=== PATIENT | female | born 2000 | race Hispanic/Latino ===

== ENCOUNTER 2023-05-01 07:37 | Emergency (ER) | payer OTHER, SELFPAY ==
--- OUTSIDE RECORDS SUMMARY | 2023-05-01 07:40 | XMS REPORT | Continuity of Care Document ---
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 Allergies, Adverse Reactions, Alerts Allergy Allergy Status Severity Reaction(s) Onset Inactive Treating Comm ents Source Name Type Date Date Clinician NO KNOWN Drug Active [facility] Social History Social Habit Start Date Stop Date Quantity Comments Source Sex Assigned At [facility] Alcohol intake 2018-06-25 2018[facility]06[facility]25 [facility] Smoking Status Start Date Stop Date Source Never smoker [facility] Medications Ordered Filled Start Stop Current Ordering Indication Dosage Frequency Signature Comments Components Source Medication Medication Date Date Medication? Clinician (SIG) Name Name No known No Univers medications [facility] Immunizations Ordered Immunization Filled Immunization Date Status Commen ts Source Name Name Meningococcal B, OMV 2018-06-25 Completed [facility] of 00:00:00 [facility] HPV9 2017-04-27 Completed University of 00:00:00 [facility] Meningococcal 2017-04-27 Completed [facility] 00:00:[address] [facility] jesse (groups A, C, Y and Branc h W-135) conjugate vaccine (MCV4P) Meningococcal B, OMV 2017-04-27 Completed Univ ersity of 00:00:00 [facility] HPV9 2015-09-22 Completed University of 00:00:00 [facility] Influenza Virus 2013-11-14 Completed Universit y of Vaccine 00:00:00 [facility] TDAP (ADACEL) VACCINE 2012-06-20 Completed Uni versity of 00:00:00 [facility] Varicella 2012-06-20 Completed University of (varivax)(chicken 00:00:00 [place] [facility] DTAP 2003-12-19 Completed University of 00:00:00 [facility] MMR 2003-12-19 Completed University of 00:00:00 [facility] Polio (IPV/OPV) 2003-12-19 Completed Universit y of 00:00:00 [facility] DTAP 2000-11-29 Completed University of 00:00:00 [facility] HIB 4 Dose Schedule 2000-11-29 Completed Unive rsity of 00:00:00 [facility] MMR 2000-11-29 Completed University of 00:00:00 [facility] Varicella 2000-11-29 Completed University of (varivax)(chicken 00:00:00 [place] [facility] DTAP 2000-05-25 Completed University of 00:00:00 [facility] Hep B, Adol or Pedi 2000-05-25 Completed Unive rsity of Dosage 00:00:00 [facility] HIB 4 Dose Schedule 2000-05-25 Completed Unive rsity of 00:00:00 [facility] Polio (IPV/OPV) 2000-05-25 Completed Universit y of 00:00:00 [facility] DTAP 2000-03-21 Completed University of 00:00:00 [facility] HIB 4 Dose Schedule 2000-03-21 Completed Unive rsity of 00:00:00 [facility] Polio (IPV/OPV) 2000-03-21 Completed Universit y of 00:00:00 [facility] DTAP 2000-01-20 Completed University of 00:00:00 [facility] Hep B, Adol or Pedi 2000-01-20 Completed Unive rsity of Dosage 00:00:00 [facility] HIB 4 Dose Schedule 2000-01-20 Completed [facility]ive rsity of 00:00:00 [facility] Polio (IPV/OPV) 2000-01-20 Completed Universit y of 00:00:00 [facility] Hep B, Adol or Pedi 1999 Completed Unive rsity of Dosage 00:00:00 [facility] Procedures Procedure Date / Time Performing Clinician Source Performed VACCINATIONS - 2020-02-27 05:01:00 Doctor Unassfroylan, No [facility] CONSENTS, ELIGIBILITY, Name [facility] HISTORY Encounters Start End Encounter Admission Attending Care Care Encounter Source Date/Time Date/Time Type Type Clinicians Facility Department ID 2022-01-06 2022-01-06 Outpatient R [facility] [id number] Univers 10:00:00 10:00:00 [id number] ity of [facility] 2022-01-06 2022-01-06 Outpatient R [facility] [id number] Univers 10:00:00 10:00:00 ity of [facility] 2020-02-27 2020-02-27 Orders Doctor PLASENCIA [id number] Univers 00:00:00 00:00:00 Only Unassigned, LANI [id number] ity of [place] [facility] [id number] [place] as [id number] [place] [id number] Branch 2018-06-25 2018-06-25 Outpatient R SHONDA [facility] [id number] Univers 14:50:00 16:08:58 CONY of [facility] Results This patient has no known results.
[2023-05-01] MEDS ORDERED: ONDANSETRON 4 MG/2 ML VIAL ONE (08:02)
[2023-05-01] MEDS ORDERED: DICYCLOMINE HCL 20 MG/2 ML AMP IM ONE (08:02)
[2023-05-01] MEDS ORDERED: NA CHLORIDE 0.9% 1,000 ML ONE (08:02)
[2023-05-01 08:17] LABS: Absolute Lymphocytes (CBC) 0.5 K/uL (0.7-4.9); Hematocrit 40.4 % (36.0-45.0); Lymphocytes % 4.5 % (15.3-44.8); MCV 77.2 fL (80-100); RBC Red Blood Cell Count 5.23 M/uL (3.86-4.86)
[2023-05-01] MEDS ORDERED: FAMOTIDINE 20 MG/2 ML VIAL IV ONE (08:29)
[2023-05-01 08:36] LABS: Albumin 4.1 g/dL (3.4-5.0); Bilirubin Total 0.4 mg/dL (0.2-1.0); Potassium 3.9 mEq/L (3.5-5.1); Protein, Total 8.5 g/dL (6.4-8.2)
--- NOTE | 2023-05-01 08:55 | RAD REPORT ---
EXAM DESCRIPTION: US - Abdomen Exam Limited - 05/01/2023 8:26 am CLINICAL HISTORY: RUQ tenderness COMPARISON: No comparisons TECHNIQUE: Sonographic grayscale and color flow images of the right upper abdominal quadrant were obtained. FINDINGS: The gallbladder demonstrates no echogenic shadowing gallstones. Lobulated sludge seen in t he fundus, although evaluation was technically difficult, and limited by prominent over shadowing bow el in the right upper quadrant. No pericholecystic fluid or gallbladder wall thickening. The common b ile duct is normal measuring 3 mm. The liver demonstrates no findings of intrahepatic biliary dilatation. IMPRESSION: Gallbladder sludge, allowing for limitations mentioned above. No sonographic evidence of cholelithiasis or acute cholecystitis.
[2023-05-01 09:01] LABS: Blood Morphology Comment NOT SEEN (NOT SEEN); Platelet Estimate ADEQ; White Blood Cell Scan NEUTROPHILIA (OK)
[2023-05-01 09:17] LABS: Specific Gravity 1.021 (1.005-1.030)
[2023-05-01 09:33] LABS: Specific Gravity 1.021 (1.005-1.030); Urine Bacteria <20 /HPF (<20); Urine Bilirubin NEGATIVE (Negative); Urine Blood 3+ (OVER) (Negative); Urine Clarity Turbid (Clear); Urine Color Light-Yellow (Yellow); Urine Glucose NEGATIVE (Negative); Urine Mucus Slight /HPF (None Seen); Urine Protein TRACE (Negative); Urine Urobilinogen Normal (Normal)
--- NOTE | 2023-05-01 09:50 | ER ---
Nurse's Notes [facility] Name: Jackie Pabon Age: 22 yrs Sex: Female : 2000 Arrival Date: 05/01/2023 Time: 07:37 Bed 5 Private MD: Diagnosis: Gastroenteritis Presentation: 05/01 07:45 Chief complaint: Patient states: N/V since midnight, diarrhea started at 0500, diffuse jl7 abdominal pain. Coronavirus screen: At this time, the client does not indicate any symptoms associated with coronavirus-19. Ebola Screen: No symptoms or risks identified at this time. Risk Assessment: Do you want to hurt yourself or someone else? Patient reports no desire to harm self or others. Onset of symptoms was May 01, 2023 at 00:00. Care prior to arrival: None. 07:45 Method Of Arrival: Ambulatory [facility] 07:45 Acuity: DARIUS 3 jl7 07:49 Initial Sepsis Screen: Does the patient meet any 2 criteria? No. Patient's initial jl7 sepsis screen is negative. Does the patient have a suspected source of infection? No. Patient's initial sepsis screen is negative. Triage Assessment: 07:46 General: Appears in no apparent distress. uncomfortable, Behavior is calm, cooperative, jl7 appropriate for age. Pain: Complains of pain in abdomen diffusely Pain currently is 5 out of 10 on a pain scale. GI: Reports diarrhea, nausea, vomiting. 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 - Social history:: Smoking status: Patient denies any tobacco usage or history of. - Family history:: not pertinent. Screenin:47 [facility] ED Fall Risk Assessment (Adult) History of falling in the last 3 months, jl7 including since admission No falls in past 3 months (0 pts) Confusion or Disorientation No (0 pts) Intoxicated or Sedated No (0 pts) Impaired Gait No (0 pts) Mobility Assist Device Used No (0 pt) Altered Elimination No (0 pt) Score/Fall Risk Level 0 - 2 = Low Risk Oriented to surroundings, Maintained a safe environment. Abuse screen: Denies threats or abuse. Denies injuries from another. Nutritional screening: No deficits noted. Tuberculosis screening: No symptoms or risk factors identified. Assessment: 08:09 General: Appears in no apparent distress. comfortable, Behavior is calm, cooperative, kc6 appropriate for age. Pain: Complains of pain in abdomen and abdomen diffusely Pain currently is 5 out of 10 on a pain scale. Neuro: Jacobson Agitation-Sedation Scale (RASS): 0 - Alert and Calm Level of Consciousness is awake, alert, obeys commands, Oriented to person, place, time, situation, Appropriate for age. Cardiovascular: Capillary refill < 3 seconds. Respiratory: Airway is patent Trachea midline Respiratory effort is even, unlabored, Respiratory pattern is regular, symmetrical. GI: Abdomen is flat, non-distended, Bowel sounds present X 4 quads. Abd is soft X 4 quads Abdomen is tender to palpation in right upper quadrant and left upper quadrant Reports diarrhea, nausea, vomiting. : No signs and/or symptoms were reported regarding the genitourinary system. EENT: No signs and/or symptoms were reported regarding the EENT system. Derm: No signs and/or symptoms reported regarding the dermatologic system. Skin is intact, Skin is pink, warm \T\ dry. Musculoskeletal: No signs and/or symptoms reported regarding the musculoskeletal system. Circulation, motion, and sensation intact. Capillary refill < 3 seconds, Range of motion: intact in all extremities. 08:33 Reassessment: Pt returned from radiology, reports decreased nausea and decreased jl7 abdominal pain, rated 3/10 at this time. Pt will provide urine sample after fluids are done infusing, 500 mL left to infuse. 09:09 Reassessment: Patient appears in no apparent distress at this time. No changes from kc6 previously documented assessment. Patient and/or family updated on plan of care and expected duration. Pain level reassessed. Patient is alert, oriented x 3, equal unlabored respirations, skin warm/dry/pink. Vital Signs: 07:46 BP 161 / 102; Pulse 104; Resp 17; Pulse Ox 100% ; Weight 117.93 kg; Height 5 ft. 6 in. jl7 ; Pain 5/10; 07:48 Temp 98.6(O); jl7 07:49 BP 164 / 89; kc6 09:10 BP 139 / 75; Pulse 89; Resp 16 S; Pulse Ox 100% on R/A; kc6 07:46 Body Mass Index 41.96 (117.93 kg, 167.64 cm) jl7 07:46 Pain Scale: Adult jl7 ED Course: 07:39 Patient arrived in ED. im 07:40 Alexandria Baptiste RN is Primary Nurse. kc6 07:42 Gualberto Guillen MD is Attending Physician. rt 07:46 Triage completed. jl7 07:46 Arm band placed on right wrist. jl7 07:47 Patient has correct armband on for positive identification. Pulse ox on. NIBP on. jl7 08:09 Inserted saline lock: 20 gauge in left antecubital area, using aseptic technique. Blood kc6 collected. 08:28 Abdomen Limited US In Process Unspecified. EDMS Administered Medications: 08:09 Drug: NS 0.9% IV 1000 ml Route: IV; Rate: 1 bolus; Site: left antecubital; kc6 08:09 Drug: Ondansetron IVP 4 mg Route: IVP; Site: left antecubital; kc6 08:33 Follow up: Response: Nausea is decreased jl7 08:09 Drug: Dicyclomine IM 20 mg Route: IM; Site: right deltoid; kc6 08:33 Follow up: Response: Pain is decreased jl7 08:33 Drug: Famotidine IVP 20 mg Route: IVP; Site: left antecubital; jl7 09:10 Follow up: Response: No adverse reaction; Nausea is decreased kc6 Medication: 07:47 VIS not applicable for this client. jl7 Outcome: 09:49 Discharge ordered by . rt 10:29 Patient left the ED. zm Signatures: Dispatcher [employer] EDMS Nicko Montiel RN RN jl7 Doris Barrera Alexandria Baptiste RN RN kc6 Gualberto Guillen MD MD rt Brenda Bejarano im
--- NOTE | 2023-05-01 09:50 | EDPHYS ---
Physician Documentation [facility] Name: Jackie Pabon Age: 22 yrs Sex: Female : 2000 Arrival Date: 05/01/2023 Time: 07:37 Bed 5 Private MD: ED Physician Gualberto Guillen HPI: 05/01 07:54 This 22 yrs old Female presents to ER via Ambulatory with complaints of rt Nausea/Vomiting/Diarrhea. 07:54 Patient presents to the ED with nausea, vomiting, diarrhea starting last night. She rt states that she has been unable to tolerate liquids since then. Denies hematemesis, hematochezia. She reported crampy abdominal pain when she vomits. The patient attributes this to eating [employer] yesterday. Denies other acute complaints at this time. Symptoms are moderate severity, no other aggravating alleviating factors.. 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 - Social history:: Smoking status: Patient denies any tobacco usage or history of. - Family history:: not pertinent. ROS: 07:54 Constitutional: Negative for fever, chills, and weight loss, Cardiovascular: Negative rt for chest pain, palpitations, and edema, Respiratory: Negative for shortness of breath, cough, wheezing, and pleuritic chest pain, MS/Extremity: Negative for injury and deformity, Skin: Negative for injury, rash, and discoloration, Neuro: Negative for headache, weakness, numbness, tingling, and seizure, Psych: Negative for depression, anxiety, suicide ideation, homicidal ideation, and hallucinations. 07:54 Abdomen/GI: Positive for abdominal pain, nausea, vomiting, and diarrhea. Exam: 07:54 Constitutional: This is a well developed, well nourished patient who is awake, alert, rt and in no acute distress. Head/Face: Normocephalic, atraumatic. Chest/axilla: Normal chest wall appearance and motion. Nontender with no deformity. No lesions are appreciated. Cardiovascular: Regular rate and rhythm with a normal S1 and S2. No gallops, murmurs, or rubs. Normal PMI, no JVD. No pulse deficits. Respiratory: Lungs have equal breath sounds bilaterally, clear to auscultation and percussion. No rales, rhonchi or wheezes noted. No increased work of breathing, no retractions or nasal flaring. Skin: Warm, dry with normal turgor. Normal color with no rashes, no lesions, and no evidence of cellulitis. MS/ Extremity: Pulses equal, no cyanosis. Neurovascular intact. Full, normal range of motion. Neuro: Awake and alert, GCS 15, oriented to person, place, time, and situation. Cranial nerves II-XII grossly intact. Motor strength 5/5 in all extremities. Sensory grossly intact. Cerebellar exam normal. Normal gait. Psych: Awake, alert, with orientation to person, place and time. Behavior, mood, and affect are within normal limits. 07:54 Abdomen/GI: Mild tenderness to the right upper quadrant without rebound, guarding, distention. No other focal areas of tenderness on the abdomen. Vital Signs: 07:46 BP 161 / 102; Pulse 104; Resp 17; Pulse Ox 100% ; Weight 117.93 kg; Height 5 ft. 6 in. jl7 ; Pain 5/10; 07:48 Temp 98.6(O); jl7 07:49 BP 164 / 89; kc6 09:10 BP 139 / 75; Pulse 89; Resp 16 S; Pulse Ox 100% on R/A; kc6 07:46 Body Mass Index 41.96 (117.93 kg, 167.64 cm) jl7 07:46 Pain Scale: Adult jl7 MDM: 07:44 Patient medically screened. rt 09:52 Differential diagnosis: Nonspecific abd pain, gastritis, cholecystitis, pancreatitis, rt appendicitis, viral gastroenteritis. Data reviewed: vital signs, nurses notes, lab test result(s), radiologic studies. I considered the following discharge prescriptions or medication management in the emergency department Medications were administered in the Emergency Department. See MAR. Test considered but Not performed: CT: No focal right lower quadrant tenderness to suggest appendicitis, rest of the abdominal exam is reasonably benign. CT scan not indicated. Counseling: I had a detailed discussion with the patient and/or guardian regarding: the historical points, exam findings, and any diagnostic results supporting the discharge/admit diagnosis, lab results, radiology results, the need for outpatient follow up, to return to the emergency department if symptoms worsen or persist or if there are any questions or concerns that arise at home. Response to treatment: the patient's symptoms have markedly improved after treatment. 05/01 07:51 Order name: CBC with Diff; Complete Time: 09:06 rt 05/01 07:51 Order name: CMP; Complete Time: 09:06 rt 05/01 07:51 Order name: Lipase; Complete Time: 09:06 rt 05/01 07:51 Order name: Test, Urine; Complete Time: 09:33 rt 05/01 07:51 Order name: Urinalysis w/ reflexes; Complete Time: 09:34 rt 05/01 08:21 Order name: CBC Smear Scan; Complete Time: 09:06 EDMS 05/01 07:51 Order name: Abdomen Limited US; Complete Time: 09:06 rt 05/01 07:51 Order name: IV Saline Lock; Complete Time: 08:09 rt 05/01 07:51 Order name: Labs collected and sent; Complete Time: 08:09 rt Administered Medications: 08:09 Drug: NS 0.9% IV 1000 ml Route: IV; Rate: 1 bolus; Site: left antecubital; kc6 08:09 Drug: Ondansetron IVP 4 mg Route: IVP; Site: left antecubital; kc6 08:33 Follow up: Response: Nausea is decreased jl7 08:09 Drug: Dicyclomine IM 20 mg Route: IM; Site: right deltoid; kc6 08:33 Follow up: Response: Pain is decreased jl7 08:33 Drug: Famotidine IVP 20 mg Route: IVP; Site: left antecubital; jl7 09:10 Follow up: Response: No adverse reaction; Nausea is decreased kc6 Disposition Summary: 05/01/23 09:49 Discharge Ordered Location: Home rt Problem: new rt Symptoms: have improved rt Condition: Stable rt Diagnosis - Gastroenteritis rt Followup: rt - With: Private Physician - When: 2 - 3 days - Reason: Discharge Instructions: - Discharge Summary Sheet rt - Viral Gastroenteritis, Adult rt Forms: - Medication Reconciliation Form rt - Thank You Letter rt - Antibiotic Education rt - Prescription Opioid Use rt - [email or web address] rt Prescriptions: - ondansetron 4 mg Oral Tablet,disintegrating - take 1 tablet by ORAL route every 6 hours; 18 tablet; Refills: 0, Product rt Selection Permitted - dicyclomine 10 mg Oral Capsule - take 1 capsule by ORAL route 3 times per day; 15 capsule; Refills: 0, Product rt Selection Permitted Signatures: Dispatcher [employer] Nicko Vargas RN RN jl7 Alexandria Baptiste RN RN kc6 Gualberto Guillen MD MD rt
[2023-05-01 10:56] VITALS: O2SAT 100
[2023-05-01 10:58] VITALS: TEMP 98.6
[2023-05-01 11:01] VITALS: BP 139/75
== END 2023-05-01 10:29 | disposition home or self-care (01) ==
LOC: ER 07:37
DX: K52.9 Noninfective gastroenteritis and colitis, unspecified (principal)
CPT/HCPCS: 36415; 76705; 80053; 81001; 81025; 83690; 85025; 96372; 96374; 96375; 99284; J0500; J2405; J7030